=== PATIENT | female | born 1935 | race Caucasian/White ===

== ENCOUNTER 2019-11-01 10:24 | Inpatient (IN) | payer MEDICARE, BC ==
[2019-11-01] MEDS ORDERED: MORPHINE SULFATE 4 MG/ML SYRINGE IVP STA (10:47)
--- NOTE | 2019-11-01 10:59 | ED ---
General Adult HPI - General Chief complaint: Extremity Problem,Nontraumatic Stated complaint: Fall Time Seen by Provider: 11/01/19 10:31 Source: EMS, RN notes reviewed, old records reviewed Mode of arrival: EMS Limitations: no limitations - History of Present Illness Initial comments: Patient is a very pleasant 83-year-old female who presents emergency department today after falling backward trying to wash her dizziness prior to making bread. She reports that she fell back and landed on her right hip. She reports she is unable to ambulate and crawled to the phone to call her sister whom then called EMS. Patient reports she is unable to bear weight or stand and significant pain of the right leg and hip. She was given IV fentanyl by EMS and reports some improvement. Patient denies any chest or abdominal pain. She denies any reported head or neck injury but was placed in a soft c-collar by EMS. Patient is not on blood thinners. - Related Data Allergies Allergy/AdvReac Type Severity Reaction Status Date / Time No Known Allergies Allergy Verified 11/01/19 11:14 Review of Systems ROS Statement: Those systems with pertinent positive or pertinent negative responses have been documented in the HPI. ROS Other: All systems not noted in ROS Statement are negative. Past Medical History Past Medical History: Osteoarthritis (OA) History of Any Multi-Drug Resistant Organisms: None Reported Additional Past Surgical History / Comment(s): eye surgery Past Psychological History: No Psychological Hx Reported Smoking Status: Never smoker Past Alcohol Use History: None Reported Past Drug Use History: None Reported General Exam - General Exam Comments Initial Comments: 83-year-old female. Alert and oriented. No distress. Limitations: no limitations General appearance: alert, in no apparent distress Head exam: Present: atraumatic, normocephalic, normal inspection Eye exam: Present: normal appearance, PERRL, EOMI. Absent: scleral icterus, conjunctival injection, periorbital swelling ENT exam: Present: normal exam, mucous membranes moist Neck exam: Present: normal inspection. Absent: tenderness, meningismus, lymphadenopathy Respiratory exam: Present: normal lung sounds bilaterally. Absent: respiratory distress, wheezes, rales, rhonchi, stridor Cardiovascular Exam: Present: regular rate, normal rhythm, normal heart sounds. Absent: systolic murmur, diastolic murmur, rubs, gallop, clicks GI/Abdominal exam: Present: soft, normal bowel sounds. Absent: distended, tenderness, guarding, rebound, rigid Extremities exam: Present: normal inspection, full ROM, normal capillary refill. Absent: tenderness, pedal edema, joint swelling, calf tenderness Right Hip exam: Present: normal inspection, tenderness. Absent: full ROM Upper Leg exam: Present: normal inspection, full ROM, tenderness (upper thigh, greatear trochanter), swelling Knee exam: Present: normal inspection, full ROM Lower Leg exam: Present: normal inspection, full ROM Ankle exam: Present: normal inspection, full ROM Foot/Toe exam: Present: normal inspection, full ROM Gait: observed and normal Back exam: Present: normal inspection Neurological exam: Present: alert, oriented X3, CN II-XII intact Psychiatric exam: Present: normal affect, normal mood Skin exam: Present: warm, dry, intact, normal color. Absent: rash Course Vital Signs 11/01/19 10:25 Temperature 97 F L Pulse Rate 81 Respiratory 18 Rate Blood Pressure 169/74 O2 Sat by Pulse 96 Oximetry EKG Findings - EKG Comments: EKG Findings:: EKG shows normal sinus rhythm, nonspecific T wave abnormality. Abnormal EKG. Ventricular rate of 77 bpm. SD interval is 162 ms. QRS duration is 66 ms. QTC 392/443 ms. Medical Decision Making - Medical Decision Making Patient's an 83-year-old female who presents emergency department today after fall from standing position landing on her right hip. X-rays reveal evidence of a right intertrochanteric nondisplaced fracture. She had a CT brain and C-spine which were negative for acute process. She is alert and oriented. She has no other complaints of pain at this time. Patient was given IV pain medication. Discussed the case with JOSIAS Robert to admit for Dr. Holbrook with consult to medicine. Plan for surgery possibly Sunday or Sunday. Pt will be given calle. - Lab Data Result diagrams: 11/01/19 11:00 11/01/19 11:00 Lab Results 11/01/19 11/01/19 11/01/19 Range/Units 11:00 11:00 11:00 WBC 9.3 (3.8-10.6) k/uL RBC 3.50 L (3.80-5.40) m/uL Hgb 11.2 L (11.4-16.0) gm/dL Hct 33.5 L (34.0-46.0) % MCV 95.6 (80.0-100.0) fL MCH 32.0 (25.0-35.0) pg MCHC 33.4 (31.0-37.0) g/dL RDW 13.5 (11.5-15.5) % Plt Count 163 (150-450) k/uL Neutrophils % 85 % Lymphocytes % 10 % Monocytes % 3 % Eosinophils % 0 % Basophils % 0 % Neutrophils # 7.9 H (1.3-7.7) k/uL Lymphocytes # 1.0 (1.0-4.8) k/uL Monocytes # 0.3 (0-1.0) k/uL Eosinophils # 0.0 (0-0.7) k/uL Basophils # 0.0 (0-0.2) k/uL PT 10.4 (9.0-12.0) sec INR 1.0 (<1.2) APTT 22.1 (22.0-30.0) sec Sodium 138 (137-145) mmol/L Potassium 4.7 (3.5-5.1) mmol/L Chloride 105 (98-107) mmol/L Carbon Dioxide 27 (22-30) mmol/L Anion Gap 6 mmol/L BUN 20 H (7-17) mg/dL Creatinine 0.95 (0.52-1.04) mg/dL Est GFR (CKD-EPI)AfAm 65 (>60 ml/min/1.73 sqM) Est GFR (CKD-EPI)NonAf 57 (>60 ml/min/1.73 sqM) Glucose 184 H (74-99) mg/dL Calcium 8.8 (8.4-10.2) mg/dL Total Bilirubin 0.5 (0.2-1.3) mg/dL AST 33 (14-36) U/L ALT 19 (4-34) U/L Alkaline Phosphatase 52 (38-126) U/L Troponin I (0.000-0.034) ng/mL Total Protein 6.3 (6.3-8.2) g/dL Albumin 4.1 (3.5-5.0) g/dL 11/01/19 Range/Units 11:00 WBC (3.8-10.6) k/uL RBC (3.80-5.40) m/uL Hgb (11.4-16.0) gm/dL Hct (34.0-46.0) % MCV (80.0-100.0) fL MCH (25.0-35.0) pg MCHC (31.0-37.0) g/dL RDW (11.5-15.5) % Plt Count (150-450) k/uL Neutrophils % % Lymphocytes % % Monocytes % % Eosinophils % % Basophils % % Neutrophils # (1.3-7.7) k/uL Lymphocytes # (1.0-4.8) k/uL Monocytes # (0-1.0) k/uL Eosinophils # (0-0.7) k/uL Basophils # (0-0.2) k/uL PT (9.0-12.0) sec INR (<1.2) APTT (22.0-30.0) sec Sodium (137-145) mmol/L Potassium (3.5-5.1) mmol/L Chloride (98-107) mmol/L Carbon Dioxide (22-30) mmol/L Anion Gap mmol/L BUN (7-17) mg/dL Creatinine (0.52-1.04) mg/dL Est GFR (CKD-EPI)AfAm (>60 ml/min/1.73 sqM) Est GFR (CKD-EPI)NonAf (>60 ml/min/1.73 sqM) Glucose (74-99) mg/dL Calcium (8.4-10.2) mg/dL Total Bilirubin (0.2-1.3) mg/dL AST (14-36) U/L ALT (4-34) U/L Alkaline Phosphatase (38-126) U/L Troponin I <0.012 (0.000-0.034) ng/mL Total Protein (6.3-8.2) g/dL Albumin (3.5-5.0) g/dL - Radiology Data Radiology results: report reviewed Wrist x-ray shows chronic changes without acute pulmonary process. Pelvis and right femur fracture shows acute nondisplaced intertrochanteric fracture of the right proximal femur. CT brain and C spine: There is no acute fracture dislocation evident cervical spine. Multilevel spondylolisthesis and degenerative changes. No acute intracranial hemorrhage or midline shift is seen. Mild to moderate diffuse cervical atrophy is noted. Disposition Clinical Impression: Fall, Fracture, intertrochanteric, right femur Disposition: ADMITTED IP TO THIS HOSP Condition: Stable Is patient prescribed a controlled substance at d/c from ED?: No Referrals: Harish Garnica MD [STAFF PHYSICIAN] - 1-2 days Time of Disposition: 12:30
[2019-11-01] MEDS: SODIUM CHLORIDE 0.9% 1,000 ML IV SCH ×2 (11:14→14:03)
[2019-11-01 11:19] LABS: Basophils % (A) 0 %; Eosinophils % (A) 0 %; HCT 33.5 % (34.0-46.0); HGB 11.2 gm/dL (11.4-16.0); Lymphocytes % (A) 10 %; MCHC 33.4 g/dL (31.0-37.0); MCV 95.6 fL (80.0-100.0); Mean Platelet Volume 6.8; Monocytes # (A) 0.3 k/uL (0-1.0); Monocytes % (A) 3 %; Neutrophils # (A) 7.9 k/uL (1.3-7.7); Neutrophils % (A) 85 %; Platelet Count 163 k/uL (150-450); RDW 13.5 % (11.5-15.5); WBC 9.3 k/uL (3.8-10.6)
[2019-11-01 11:27] LABS: Albumin 4.1 g/dL (3.5-5.0); Calcium 8.8 mg/dL (8.4-10.2); Potassium 4.7 mmol/L (3.5-5.1); Total Bilirubin 0.5 mg/dL (0.2-1.3); Total Protein 6.3 g/dL (6.3-8.2)
[2019-11-01 11:32] LABS: Partial Thromboplastin Time 22.1 sec (22.0-30.0); Prothrombin Time 10.4 sec (9.0-12.0)
--- NOTE | 2019-11-01 11:48 | CT ---
EXAMINATION TYPE: CT brain efrain arndt DATE OF EXAM: 11/01/2019 COMPARISON: NONE HISTORY: Lost balance, Fall injury with headache and neck pain. CT DLP: 1170 mGycm. Automated Exposure Control for Dose Reduction was Utilized. TECHNIQUE: CT scan of the head and cervical spine are performed without contrast. FINDINGS: There is no acute intracranial hemorrhage or midline shift identified. Diffuse ventricula r and sulcal prominence. Bilateral basal ganglia calcifications. The calvarium is intact. The globes are intact and the visualized sinuses are clear. Cervical spine is visualized in its entirety from C1 through upper thoracic levels and demonstrates d extroconvex scoliosis centered in the upper to mid thoracic spine without evidence of acute fracture or dislocation. There is grade 1 retrolisthesis C3 on C4, C4-C5, C5 on C6. Prevertebral soft tissue appears within normal limits. The C1-C2 articulation is within normal limits on the coronal images. Vertebral body heights are maintained. Moderate to severe disc space narrowing and mild to moderate s purring C3-C4 through C6-C7 levels is present. Posterior spurring is present as complexes efface the anterior thecal sac at these levels on sagittal and axial images. Axial images show multilevel uncovertebral facet degenerative changes contributing to mild to moderat e multilevel neural foraminal narrowing at these levels. Thyroid gland is normal in size. Lung apices show moderate pleural/parenchymal scarring bilaterally along with 5 mm posterior calcified nodule or granuloma right upper lobe image 71. No pneumothorax is noted. IMPRESSION: 1. There is no acute fracture or dislocation evident in the cervical spine. Multilevel spondylolisthe sis and degenerative changes as detailed above. 2. No acute intracranial hemorrhage or midline shift is seen. [id number] diffuse cerebral atrop hy noted.
--- NOTE | 2019-11-01 12:03 | XR ---
EXAMINATION TYPE: XR pelvis AP view, XR femur RT DATE OF EXAM: 11/01/2019 CLINICAL HISTORY: Pelvic and right femur pain after fall injury. TECHNIQUE: A single AP view of the pelvis is obtained. Two views of the right femur are obtained. COMPARISON: None. FINDINGS: Osseous structures are demineralized. Persistent linear lucency consistent with acute nondi splaced intertrochanteric fracture right proximal femur seen best on frontal projection. No hip joint dislocation. Mild to moderate symmetric axial joint space loss both hips. Sacroiliac joints felt wit hin normal limits. Pubic symphysis intact. Right-sided pelvic phlebolith. Prominence of fecal materia l in the colonic loops in the right and lower pelvis. No additional acute fracture or dislocation distally. [id number] tricompartment joint space los s right knee. Overlying soft tissue unremarkable. IMPRESSION: There is acute nondisplaced intertrochanteric fracture right proximal femur. (Initial encounter closed type posttraumatic fracture)
--- NOTE | 2019-11-01 12:05 | XR ---
EXAMINATION TYPE: XR chest 1V DATE OF EXAM: 11/01/2019 COMPARISON: Chest x-ray November 23, 2008. HISTORY: Pain after fall injury. TECHNIQUE: Single frontal supine view of the chest is obtained. FINDINGS: There is chronic parenchymal changes bilaterally without suspicious new focal air space op acity, pleural effusion, or pneumothorax seen. The cardiac silhouette size is upper limits of normal currently with atherosclerotic thoracic aorta. The osseous structures demineralized. Underlying sc oliotic curvature is present. IMPRESSION: Chronic changes without acute pulmonary process.
[2019-11-01] MEDS ORDERED: NALOXONE 0.4 MG/ML 1 ML VIAL IV PRN (12:30)
[2019-11-01] MEDS ORDERED: IBUPROFEN 400 MG TAB PO PRN (12:30)
[2019-11-01] MEDS ORDERED: KETOROLAC 15 MG/ML 1 ML VIAL IVP PRN (12:30)
[2019-11-01] MEDS ORDERED: ACETAMINOPHEN TAB 325 MG TAB PO PRN (12:30)
[2019-11-01] MEDS ORDERED: ONDANSETRON 4 MG/2 ML VIAL IVP PRN (12:30)
--- NOTE | 2019-11-01 13:32 | P.HPOR ---
History of Present Illness H&P Date: 11/01/19 Chief Complaint: Right intertrochanteric femur fracture Patient is an 83-year-old female who was brought to [facility] today for evaluation after falling and injuring her right hip. Upon x-ray evaluation, it was demonstrated she had a minimally displaced right intertrochanteric femur fracture. I was contacted by the emergency room staff, the case was discussed. I then was able to evaluate the patient myself in the emergency room today, she had her sister present. She is resting comfortably. She notes most of the pain in the right lower extremity with movement. She denies any left lower extremity pain, upper extremity pain bilaterally, new onset cervical, thoracic or lumbar pain. She denies any previous surgery involving the right lower extremity. Currently she has no headaches, lightheadedness, chest pain, shortness of breath, abdominal discomfort, fever or chills, lower extremity or upper extremity paresthesias. Patient does live alone, she ambulates with no assistive devices. She does still drive. Review of Systems Constitutional: Reports as per HPI Past Medical History Past Medical History: Osteoarthritis (OA) History of Any Multi-Drug Resistant Organisms: None Reported Additional Past Surgical History / Comment(s): eye surgery Past Psychological History: No Psychological Hx Reported Smoking Status: Never smoker Past Alcohol Use History: None Reported Past Drug Use History: None Reported Medications and Allergies Home Medications Medication Instructions Recorded Confirmed Type Acetaminophen [Tylenol] 500 mg PO DAILY@0800,1200 11/01/19 11/01/19 History Cholecalciferol [Vitamin D3 (25 1,000 unit PO HS 11/01/19 11/01/19 History Mcg = 1000 Iu)] Ferrous Sulfate [Feosol] 325 mg PO BID@0800,2000 11/01/19 11/01/19 History HYDROcodone/APAP 5-325MG [[place] 1 tab PO HS 11/01/19 11/01/19 History 5-325] Losartan/Hydrochlorothiazide 1 tab PO DAILY 11/01/19 11/01/19 History [Hyzaar 50-12.5 Tablet] Lovastatin [Mevacor] 20 mg PO DAILY 11/01/19 11/01/19 History Allergies Allergy/AdvReac Type Severity Reaction Status Date / Time No Known Allergies Allergy Verified 11/01/19 12:53 Physical Examination Right lower extremity: No obvious open lesions or sores present, minimal soft tissue swelling present in the right thigh area. There is no erythema present Log roll maneuver reproduces obvious pain, she is unable to straight leg raise no pain around the knee, foot or ankle with palpation, plantar flexion, dorsiflexion, EHL, FHL are intact Calf is soft, no tenderness with palpation, dorsalis pedis pulses 2+ Logroll maneuver of the left lower extremity reproduces no pain, she is able to extend and flex the knee, along with foot and ankle with no discomfort No generalized tenderness with palpation of the bilateral upper extremities Results - Labs Labs: Abnormal Lab Results - Last 24 Hours (Table) 11/01/19 11/01/19 Range/Units 11:00 11:00 RBC 3.50 L (3.80-5.40) m/uL Hgb 11.2 L (11.4-16.0) gm/dL Hct 33.5 L (34.0-46.0) % Neutrophils # 7.9 H (1.3-7.7) k/uL BUN 20 H (7-17) mg/dL Glucose 184 H (74-99) mg/dL H & H 11/01/19 Range/Units 11:00 Hgb 11.2 L (11.4-16.0) gm/dL Hct 33.5 L (34.0-46.0) % Coagulation 11/01/19 Range/Units 11:00 INR 1.0 (<1.2) Result Diagrams: 11/01/19 11:00 11/01/19 11:00 - Diagnostic results Hip x-ray: report reviewed, image reviewed (Images demonstrate a minimally displaced right intertrochanteric femur fracture) Assessment and Plan Assessment: Minimally displaced right intertrochanteric femur fracture Status post fall from standing Plan: I was able to discuss the case, including with physical exam findings and imaging studies might any Dr. Holbrook. We would like to proceed with surgical intervention, more specifically an intramedullary nail of the right femur on 0 11/02/2019. Risk and benefits of the procedure were discussed the patient and sister at bedside, this to include but not exclude infection, blood loss, developmen of blood clots, and adequate healing of bone, need for subsequent surgery, mortality. They are in good understanding with like to proceed Obtain consent Pain control, IV and oral medication as needed Nothing by mouth after midnight Medical recommendations GI and DVT prophylaxis, likely will begin subcu medication after surgery Further recommendations to follow Time with Patient: Less than 30
[2019-11-01] MEDS ORDERED: traMADol-ACETAMINOP 37.5-325MG 1 EACH TAB PO PRN (13:41)
[2019-11-01] MEDS ORDERED: oxyCODONE-APAP 5-325MG 1 EACH TAB PO PRN (13:42)
[2019-11-01] MEDS: MORPHINE SULFATE 4 MG/ML SYRINGE IV PRN ×3 (14:02→22:32)
[2019-11-02] MEDS: MORPHINE SULFATE 4 MG/ML SYRINGE IV PRN ×3 (03:15→21:52)
[2019-11-02] MEDS: PANTOPRAZOLE 40 MG/10 ML VIAL IV SCH (07:42)
[2019-11-02] MEDS ORDERED: ceFAZolin 1,000 MG VIAL ONE (08:01)
[2019-11-02] MEDS ORDERED: diphenhydrAMINE 50 MG/ML 1 ML VIAL ONE (08:01)
[2019-11-02] MEDS ORDERED: ONDANSETRON 4 MG/2 ML VIAL ONE (08:01)
[2019-11-02] MEDS ORDERED: DEXTROSE 50% SYRINGE 50 ML IVP ONE (08:01)
[2019-11-02] MEDS ORDERED: KETAMINE 10 MG/ML 20 ML VIAL ONE (08:01)
[2019-11-02] MEDS ORDERED: MIDAZOLAM 2 MG/2 ML VIAL ONE (08:01)
[2019-11-02] MEDS ORDERED: SODIUM CHLORIDE 0.9% 100 ML BAG ONE (08:01)
[2019-11-02] MEDS ORDERED: IV FLUID CONTINUATION 1,000 ML IV ONE (08:06)
[2019-11-02] MEDS ORDERED: SODIUM CHLORIDE 0.9% 100 ML with ceFAZolin 1,000 MG IV ONE ×2 (08:18)
[2019-11-02] MEDS ORDERED: LACTATED RINGERS 1,000 ML IV ONE (08:30)
[2019-11-02] MEDS: FERROUS SULFATE 325 MG TAB PO SCH ×2 (09:18→19:26)
[2019-11-02] MEDS ORDERED: HYDROmorphone 0.5 MG/0.5 ML SYRINGE IVP PRN ×3 (09:29)
[2019-11-02] MEDS ORDERED: HYDROcodone/APAP 5-325MG 1 EACH TAB PO PRN (09:29)
[2019-11-02] MEDS ORDERED: NALOXONE 0.4 MG/ML 1 ML VIAL IV PRN (09:29)
--- NOTE | 2019-11-02 09:29 | P.OP ---
Date of Procedure: 11/02/19 Preoperative Diagnosis: Right hip intertrochanteric fracture Postoperative Diagnosis: Same Procedure(s) Performed: Trochanteric nailing right hip intertrochanteric fracture Implants: [employer]ynthe[employer] TFNA 11 mm/130 [id number] mm cannulated titanium nail with a 85 mm helical screw and a 32 mm distal locking screw Anesthesia: spinal Surgeon: Liam Holbrook Saddle Mechanic #1: Filiberto Majano Estimated Blood Loss (ml): 20 Pathology: none sent Condition: stable Disposition: PACU Indications for Procedure: 83-year-old patient seen with a right hip intertrochanteric fracture. I recommend intertrochanteric nailing. I reviewed the procedure, risks, benefits and recovery with the patient and her family. They were agreeable and consent was obtained. Operative Findings: See description of procedure Description of Procedure: The patient was taken to the operative suite. The patient received preoperative IV antibiotics. The patient underwent a spinal anesthetic by the department of anesthesia. The patient was then transferred to the Ni/fracture table. The right lower extremity was placed in standard longitudinal traction with some adduction and slight internal rotation. The left leg was placed into a well- padded well-leg oliva. C-arm was brought in confirming adequate alignment of the fracture. Right hip was now prepped and draped in the normal sterile orthopedic fashion. I now made an incision measuring approximately 5 cm proximal to the greater trochanter. I dissected down to the IT band. An incision was made through the IT band. The guidewire was introduced through the tip of the greater trochanter. This was confirmed on intraoperative imaging. I now used a opening reamer. I now chose the appropriate trochanteric nail and selected over the guidewire and then slid gently tapped down the femoral canal. I now created a separate incision for insertion of our guidepin into the head neck complex. This was introduced via the our guide and confirmed via intraoperative imaging. We reamed over our guidewires introduced appropriate length and a helical screw. I now locked into position. We now made another incision for distal locking screw and introduced the cannula through the outrigger. A drill hole was made it was depth gauged and appropriate length distal locking screw was inserted with good bicortical fixation noted. The our goal was removed. The entire construct was visualized under AP and lateral intraoperative imaging and noted adequate alignment of both the hardware and the fracture. Spot films obtained document this. The iliotibial band was repaired with #1 Vicryl. The subcu soft tissues repaired with 2-0 Vicryl followed by repair of the skin with skin ashlie. Sterile dressings were applied. The patient was now awakened, transferred to bed and taken recovery stable condition. Didier FERRARA assisted with the procedure.
--- NOTE | 2019-11-02 11:42 | XR ---
Limited right hip HISTORY: Open reduction internal fixation, hip fracture 2 intraoperative C-arm images document the procedure
--- NOTE | 2019-11-02 11:43 | FL ---
Fluoroscopy HISTORY: Hip fracture 40 seconds fluoroscopy time supplied to the referring clinician. 2 intraoperative C-arm images docum ent the procedure. See dictated report from orthopedic surgery.
[2019-11-02 11:47] LABS: Basophils % (A) 0 %; Eosinophils % (A) 0 %; HCT 27.6 % (34.0-46.0); Lymphocytes # (A) 0.8 k/uL (1.0-4.8); Lymphocytes % (A) 10 %; MCH 31.8 pg (25.0-35.0); MCV 96.4 fL (80.0-100.0); Mean Platelet Volume 6.5; Monocytes # (A) 0.3 k/uL (0-1.0); Monocytes % (A) 3 %; Neutrophils # (A) 7.1 k/uL (1.3-7.7); Neutrophils % (A) 86 %; Platelet Count 149 k/uL (150-450); RBC 2.86 m/uL (3.80-5.40); RDW 13.5 % (11.5-15.5); WBC 8.2 k/uL (3.8-10.6)
[2019-11-02 11:50] LABS: HGB 9.1 gm/dL (11.4-16.0)
[2019-11-02 12:03] VITALS: BMI 21.2
--- NOTE | 2019-11-02 12:05 | P.HPIM ---
History of Present Illness H&P Date: 11/02/19 History of present illness This is an 83-year-old patient of Dr. Concha Garnica with past medical history of hypertension and anemia. Yesterday with the patient was doing dishes and fell backwards. Patient states she landed on her right hip and admitted there for approximately 30 minutes. Patient was able to crawl to the phone where she called her sister who then called EMS. Patient was unable to bear any weight to the right leg and hip. She was transferred to the emergency department where she found to have a right hip fracture. Patient was seen by orthopedic surgery who proceeded to preformed trochanteric nailing of the right hip trochanteric fracture. At this time patient is found resting comfortably in bed without any acute distress. Patient states that her pain is well managed. Patient lives alone and her sister has breast cancer as a 6 or. Patient will require subacute rehab upon discharge. Review Of Systems: Constitutional: No fever, no chills, no night sweats. No weight change. No weakness, fatigue or lethargy. No daytime sleepiness. EENT: No headache. No blurred vision or double vision, no loss of vision. No loss of Hearing, no ringing in the ears, no dizziness. No nasal drainage or congestion. No epistaxis. No sore throat. Lungs: No shortness of breath, cough, no sputum production. No wheezing. Cardiovascular: No chest pain, no lower extremity edema. No palpitations. No paroxysmal nocturnal dyspnea. No orthopnea. No lightheadedness or dizziness. No syncopal episodes. Abdominal: no abdominal discomfort. No nausea, vomiting. no diarrhea. No constipation. No bloody or tarry stools. no loss of appetite. Genitourinary: No dysuria, increased frequency, urgency. No urinary retention. Musculoskeletal: No myalgias. No muscle weakness, no gait dysfunction, no frequent falls. No back pain. No neck pain. Integumentary: No wounds, no lesions. No rash or pruritus. No unusual bruising. No change in hair or nails. Neurologic: No aphasia. No facial droop. No change in mentation. No head injury. No headache. No paralysis. No paresthesia. Psychiatric: No depression. No anxiety. No mood swings. Endocrine: No abnormal blood sugars. No weight change. No excessive sweating or thirst. Social history: Denies smoking, EtOH, recreational street drugs. Patient lives alone and has no children. Family history: No children, one sister with breast cancer, mother and father in their 80s for coronary artery disease. Physical examination General Appearance: Alert, cooperative, no distress, appears stated age. Neck HEENT: Supple, no lymphadenopathy, no thyroid enlargement, no carotid bruits. Lungs: Clear to auscultation without crackles or wheezes no rhonchi, no deformity. Chest Wall: Chest wall normal expansion with deep inspiration no tenderness and no deformity was found on exam, no costochondral pain or discomfort. Heart: Regular rate and rhythm, S1, S2 normal, no murmur, rub or gallop. Back: Symmetric, no curvature, ROM normal, no CVA tenderness. Abdomen: Soft, non-tender, no rebound or rigidity, no hepatosplenomegaly. Extremities: Right hip dressing clean dry and intact. Positive pedal pulses. Extremities normal, atraumatic, no cyanosis or edema. Pulses: 2+ and symmetric. Skin: Skin color, texture, tugor normal, no rashes or lesions. Neurologic: Alert oriented x3 cranial nerves II through XII intact, no motor deficit, no abnormal balance or gait Assessment and plan 1. Fall from standing with right hip fracture. trochanteric nailing of the right hip trochanteric fracture procedure performed today. Postop day 0 2. Right hip fracture as noted above. 3. Hypertension Hyzaar one tablet daily 4. Anemia. Feosol to return 5 mg twice a day 5. Hyperlipidemia. Lipitor 10 mg by mouth daily 5. GI prophylaxis Protonix 40 mg IV daily 6. DVT prophylaxis Lovenox 30 mg subcu daily Discharge plan: Consult social work, physical and occupational therapy for subacute rehab. Impression and plan of care have been directed as dictated by the signing physi cian. Racheal Izaugirre nurse practitioner acting as scribe for signing physician. Past Medical History Past Medical History: Osteoarthritis (OA) History of Any Multi-Drug Resistant Organisms: None Reported Additional Past Surgical History / Comment(s): eye surgery-cataract surgery both eyes Past Psychological History: No Psychological Hx Reported Smoking Status: Never smoker Past Alcohol Use History: None Reported Past Drug Use History: None Reported - Past Family History Sister(s) Family Medical History: Cancer Additional Family Medical History / Comment(s): breast cancer Medications and Allergies Home Medications Medication Instructions Recorded Confirmed Type Acetaminophen [Tylenol] 500 mg PO DAILY@0800,1200 11/01/19 11/01/19 History Cholecalciferol [Vitamin D3 (25 1,000 unit PO HS 11/01/19 11/01/19 History Mcg = 1000 Iu)] Ferrous Sulfate [Feosol] 325 mg PO BID@0800,2000 11/01/19 11/01/19 History HYDROcodone/APAP 5-325MG [[place] 1 tab PO HS 11/01/19 11/01/19 History 5-325] Losartan/Hydrochlorothiazide 1 tab PO DAILY 11/01/19 11/01/19 History [Hyzaar 50-12.5 Tablet] Lovastatin [Mevacor] 20 mg PO DAILY 11/01/19 11/01/19 History Allergies Allergy/AdvReac Type Severity Reaction Status Date / Time No Known Allergies Allergy Verified 11/01/19 12:53 Physical Exam Vitals: Vital Signs Temp Pulse Pulse Pulse Resp BP BP 11/02/19 10:24 97.8 F 58 L 18 119/59 11/02/19 10:01 64 18 98/56 11/02/19 09:46 64 16 123/55 11/02/19 09:31 66 18 120/56 11/02/19 09:16 99.9 F H 70 16 114/53 11/02/19 07:00 98.2 F 68 18 113/51 11/02/19 01:00 99.3 F 84 20 112/56 11/02/19 00:00 20 11/01/19 19:00 98.7 F 68 20 119/60 11/01/19 15:00 98.4 F 74 18 160/62 11/01/19 13:27 98.2 F 80 18 125/80 Pulse Ox 11/02/19 10:24 97 11/02/19 10:01 95 11/02/19 09:46 96 11/02/19 09:31 93 L 11/02/19 09:16 97 11/02/19 07:00 95 11/02/19 01:00 93 L 11/02/19 00:00 11/01/19 19:00 95 11/01/19 15:00 97 11/01/19 13:27 96 Intake and Output 11/01/19 11/02/19 11/02/19 22:59 06:59 14:59 Intake Total 200 0 1200 Output Total 500 800 220 Balance -300 -800 980 Intake: IV 1200 Oral 200 0 Output: Urine 500 800 200 Estimated Blood Loss 20 Other: Voiding Method Indwelling Catheter Indwelling Catheter # Bowel Movements 1 Results CBC & Chem 7: 11/02/19 11:11 11/01/19 11:00 Labs: Abnormal Lab Results - Last 24 Hours (Table) 11/02/19 Range/Units 11:11 RBC 2.86 L (3.80-5.40) m/uL Hgb 9.1 L D (11.4-16.0) gm/dL Hct 27.6 L (34.0-46.0) % Plt Count 149 L (150-450) k/uL Lymphocytes # 0.8 L (1.0-4.8) k/uL Thrombosis Risk Factor Assmnt - Choose All That Apply Each Factor Represents 1 point: Medical pt on bed rest Each Risk Factor Represents 3 Points: Age 75 years or older Each Risk Factor Represents 5 Points: Hip, pelvis, or leg fracture (< 1 month) Thrombosis Risk Factor Assessment Total Risk Factor Score: 9 Thrombosis Risk Factor Assessment Level: High Risk
[2019-11-02] MEDS: LOSARTAN-HCTZ 50-12.5 MG 1 EACH TAB PO SCH (12:55)
[2019-11-02] MEDS: ATORVASTATIN 10 MG TAB PO SCH (13:00)
[2019-11-02] MEDS: HYDROcodone/APAP 5-325MG 1 EACH TAB PO PRN (13:00)
[2019-11-02] MEDS: SODIUM CHLORIDE 0.9% 1,000 ML IV SCH ×3 (13:02→18:03)
[2019-11-02 13:23] LABS: Appearance,Urine Cloudy (Clear); Bacteria,Urine Occasional /hpf; Bilirubin,Urine Negative (Negative); Blood,Urine Large (Negative); Color,Urine Light Yellow; Glucose,Urine (UA) Negative (Negative); Hyaline Casts,Urine 1 /lpf (0-2); Ketones,Urine Negative (Negative); Leukocyte Esterase,Urine Large (Negative); Mucus,Urine Rare /hpf; Nitrite,Urine Negative (Negative); Protein,Urine Negative (Negative); RBC,Urine 155 /hpf (0-5); Specific Gravity,Urine 1.013 (1.001-1.035); Squamous Epithelial Cell,Urine <1 /hpf (0-4); Urobilinogen,Urine <2.0 mg/dL (<2.0); WBC,Urine 76 /hpf (0-5)
[2019-11-02] MEDS: CHOLECALCIFEROL 1,000 UNIT TAB PO SCH (20:33)
[2019-11-03] MEDS: SODIUM CHLORIDE 0.9% 1,000 ML IV SCH ×4 (01:55→21:54)
[2019-11-03] MEDS: FERROUS SULFATE 325 MG TAB PO SCH ×2 (08:01→19:23)
[2019-11-03] MEDS: PANTOPRAZOLE 40 MG/10 ML VIAL IV SCH (08:01)
[2019-11-03] MEDS ORDERED: ENOXAPARIN 30 MG/0.3 ML SYRINGE SQ SCH (09:00)
[2019-11-03] MEDS: ATORVASTATIN 10 MG TAB PO SCH (10:11)
[2019-11-03] MEDS: LOSARTAN-HCTZ 50-12.5 MG 1 EACH TAB PO SCH (10:12)
[2019-11-03 10:37] LABS: Basophils % (A) 0 %; Eosinophils % (A) 0 %; HCT 31.3 % (34.0-46.0); HGB 10.2 gm/dL (11.4-16.0); Lymphocytes # (A) 1.2 k/uL (1.0-4.8); Lymphocytes % (A) 13 %; MCH 31.8 pg (25.0-35.0); MCHC 32.7 g/dL (31.0-37.0); MCV 97.1 fL (80.0-100.0); Mean Platelet Volume 6.8; Monocytes # (A) 0.4 k/uL (0-1.0); Monocytes % (A) 5 %; Neutrophils % (A) 82 %; Platelet Count 166 k/uL (150-450); RBC 3.23 m/uL (3.80-5.40); RDW 13.4 % (11.5-15.5); WBC 9.8 k/uL (3.8-10.6)
--- NOTE | 2019-11-03 11:11 | P.PN ---
Subjective Progress Note Date: 11/03/19 History of present illness This is an 83-year-old patient of Dr. Concha Garnica with past medical history of hypertension and anemia. Yesterday with the patient was doing dishes and fell backwards. Patient states she landed on her right hip and admitted there for approximately 30 minutes. Patient was able to crawl to the phone where she called her sister who then called EMS. Patient was unable to bear any weight to the right leg and hip. She was transferred to the emergency department where she found to have a right hip fracture. Patient was seen by orthopedic surgery who proceeded to preformed trochanteric nailing of the right hip trochanteric fracture. At this time patient is found resting comfortably in bed without any acute distress. Patient states that her pain is well managed. Patient lives alone and her sister has breast cancer as a 6 or. Patient will require subacute rehab upon discharge. 11/02: Patient is seen today in follow-up. She still has a Bill catheter in place which is to be removed today. Her pain is currently controlled. Incentive spirometry added. Patient has been afebrile, heart rate 70, blood pressure 156/58, pulse ox 95% on 3 L nasal cannula. Repeat CBC reveals a white count of 9.8, hemoglobin 10.2, platelet count 166. Urinalysis cloudy, blood large, leukoesterase large, RBCs 155, wbc's 76, WBC clumps few squamous cell less than 1. Bacteria occasional. Patient started on ceftriaxone and Ceftin for the residential. Patient is looking at [facility] for subacute rehab. Medication reconciliation will be reviewed and patient is cleared for discharge to rehab today if arrangements can be made. Pain medication and DVT prophylaxis per orthopedics. Review Of Systems: Constitutional: No fever, no chills, no night sweats. No weight change. No weakness, fatigue or lethargy. No daytime sleepiness. EENT: No headache. No blurred vision or double vision, no loss of vision. No loss of Hearing, no ringing in the ears, no dizziness. No nasal drainage or congestion. No epistaxis. No sore throat. Lungs: No shortness of breath, cough, no sputum production. No wheezing. Cardiovascular: No chest pain, no lower extremity edema. No palpitations. No paroxysmal nocturnal dyspnea. No orthopnea. No lightheadedness or dizziness. No syncopal episodes. Abdominal: no abdominal discomfort. No nausea, vomiting. no diarrhea. No constipation. No bloody or tarry stools. no loss of appetite. Genitourinary: No dysuria, increased frequency, urgency. No urinary retention. Musculoskeletal: No myalgias. No muscle weakness, reports gait dysfunction, no frequent falls. No back pain. No neck pain. Integumentary: No wounds, no lesions. No rash or pruritus. No unusual bruising. No change in hair or nails. Neurologic: No aphasia. No facial droop. No change in mentation. No head injury. No headache. No paralysis. No paresthesia. Psychiatric: No depression. No anxiety. No mood swings. Endocrine: No abnormal blood sugars. No weight change. No excessive sweating or thirst. Physical examination General Appearance: Alert, cooperative, no distress, appears stated age. Neck HEENT: Supple, no lymphadenopathy, no thyroid enlargement, no carotid bruits. Lungs: Clear to auscultation without crackles or wheezes no rhonchi, no deformity. Chest Wall: Chest wall normal expansion with deep inspiration no tenderness and no deformity was found on exam, no costochondral pain or discomfort. Heart: Regular rate and rhythm, S1, S2 normal, no murmur, rub or gallop. Back: Symmetric, no curvature, ROM normal, no CVA tenderness. Abdomen: Soft, non-tender, no rebound or rigidity, no hepatosplenomegaly. Extremities: Right hip dressing clean dry and intact. Positive pedal pulses. Extremities normal, atraumatic, no cyanosis or edema. Pulses: 2+ and symmetric. Skin: Skin color, texture, tugor normal, no rashes or lesions. Neurologic: Alert oriented x3 cranial nerves II through XII intact, no motor deficit, no abnormal balance or gait Assessment and plan 1. Fall from standing with right hip fracture. trochanteric nailing of the right hip trochanteric fracture procedure, postoperative day #1. PT OT per orthopedics, discontinue Bill catheter. Pain management per orthopedics. Incentive spirometry added to reduce incidence of atelectasis and hospital- acquired pneumonia. 2. Right hip fracture as noted above. 3. Hypertension Hyzaar one tablet daily 4. Anemia. Feosol to return 5 mg twice a day 5. Hyperlipidemia. Lipitor 10 mg by mouth daily 5. GI prophylaxis Protonix 40 mg IV daily 6. DVT prophylaxis Lovenox 30 mg subcu daily Discharge plan: [facility] for subacute rehab. Impression and plan of care have been directed as dictated by the signing physician. Darling Mejia nurse practitioner acting as scribe for signing physician. Objective - Vital Signs Vital signs: Vital Signs Temp 98.4 F 11/03/19 07:00 Pulse 70 11/03/19 07:00 Resp 16 11/03/19 07:00 BP 156/58 11/03/19 07:00 Pulse Ox 95 11/03/19 07:00 Intake & Output 11/02/19 11/03/19 11/03/19 18:59 06:59 18:59 Intake Total 1600 200 Output Total 520 500 Balance 1080 -300 Weight 47.627 kg Intake: IV 1600 Sodium Chloride 0.9% 1, 400 000 ml @ 50 mls/hr IV . Q20H [facility] Rx#:[id number] Oral 200 Output: Urine 500 500 Uretheral (Bill) 300 500 Estimated Blood Loss 20 Other: Voiding Method Indwelling Catheter Indwelling Catheter - Labs CBC & Chem 7: 11/03/19 09:59 11/01/19 11:00 Labs: Abnormal Lab Results - Last 24 Hours (Table) 11/02/19 11/02/19 Range/Units 11:11 13:00 RBC 2.86 L (3.80-5.40) m/uL Hgb 9.1 L D (11.4-16.0) gm/dL Hct 27.6 L (34.0-46.0) % Plt Count 149 L (150-450) k/uL Lymphocytes # 0.8 L (1.0-4.8) k/uL Urine Appearance Cloudy H (Clear) Urine Blood Large H (Negative) Ur Leukocyte Esterase Large H (Negative) Urine RBC 155 H (0-5) /hpf Urine WBC 76 H (0-5) /hpf Urine WBC Clumps Few H (None) /hpf Urine Bacteria Occasional H (None) /hpf Urine Mucus Rare H (None) /hpf Microbiology - Last 24 Hours (Table) 11/02/19 13:00 Urine Culture - Preliminary Urine,Voided
--- NOTE | 2019-11-03 15:46 | P.PN ---
Subjective Progress Note Date: 11/03/19 Principal diagnosis: Status post intramedullary nail right intertrochanteric femur fracture patient eventuated at bedside today, she is resting comfortably. She was able to get to the chair today with assistance. She notes improvement in the pain involving her right lower extremity. She denies any chest pain shortness of breath. Objective - Vital Signs Vital signs: Vital Signs Temp 98.2 F 11/03/19 14:06 Pulse 85 11/03/19 14:06 Resp 18 11/03/19 14:06 BP 160/75 11/03/19 14:06 Pulse Ox 100 11/03/19 14:06 Intake & Output 11/02/19 11/03/19 11/03/19 18:59 06:59 18:59 Intake Total 1600 200 Output Total 984 253 8188 Balance 1080 -300 -1650 Weight 47.627 kg Intake: IV 1600 Sodium Chloride 0.9% 1, 400 000 ml @ 50 mls/hr IV . Q20H [facility] Rx#:[id number] Oral 200 Output: Urine 783 946 9366 Uretheral (Bill) 050 284 1013 Estimated Blood Loss 20 Other: Voiding Method Indwelling Catheter Indwelling Catheter Indwelling Catheter # Voids 1 - Exam Right lower extremity: Incisions are clean, dry and intact. Minimal soft tissue swelling present. Sensory exam to light touch throughout the extremity is intact. Plantar flexion, dorsiflexion, EHL, FHL are intact. Dorsalis pedis pulses 2+. - Labs CBC & Chem 7: 11/03/19 09:59 11/01/19 11:00 Labs: Abnormal Lab Results - Last 24 Hours (Table) 11/03/19 Range/Units 09:59 RBC 3.23 L (3.80-5.40) m/uL Hgb 10.2 L (11.4-16.0) gm/dL Hct 31.3 L (34.0-46.0) % Neutrophils # 8.0 H (1.3-7.7) k/uL Microbiology - Last 24 Hours (Table) 11/02/19 13:00 Urine Culture - Preliminary Urine,Voided Assessment and Plan Assessment: Status post intramedullary nail right intertrochanteric femur fracture Plan: Pain control, continue current medication GI and DVT prophylaxis, continue current medication Continue her physical therapy Daily dressing changes Wound care instructions discussed Medical recommendations Hopeful discharge to rehab tomorrow Time with Patient: Less than 30
[2019-11-03] MEDS: CHOLECALCIFEROL 1,000 UNIT TAB PO SCH (20:07)
[2019-11-04] MEDS: SODIUM CHLORIDE 0.9% 1,000 ML IV SCH ×2 (00:15→07:58)
[2019-11-04] MEDS: HYDROcodone/APAP 5-325MG 1 EACH TAB PO PRN ×3 (02:29→16:35)
[2019-11-04 05:58] LABS: Basophils % (A) 0 %; Eosinophils # (A) 0.1 k/uL (0-0.7); Eosinophils % (A) 1 %; HCT 26.7 % (34.0-46.0); Lymphocytes # (A) 1.6 k/uL (1.0-4.8); Lymphocytes % (A) 21 %; MCHC 33.6 g/dL (31.0-37.0); MCV 95.2 fL (80.0-100.0); Mean Platelet Volume 6.8; Monocytes # (A) 0.4 k/uL (0-1.0); Monocytes % (A) 5 %; Neutrophils # (A) 5.3 k/uL (1.3-7.7); Neutrophils % (A) 71 %; Platelet Count 145 k/uL (150-450); RDW 13.2 % (11.5-15.5); WBC 7.4 k/uL (3.8-10.6)
[2019-11-04] MEDS: LOSARTAN-HCTZ 50-12.5 MG 1 EACH TAB PO SCH (07:52)
[2019-11-04] MEDS: FERROUS SULFATE 325 MG TAB PO SCH (07:52)
[2019-11-04] MEDS: ATORVASTATIN 10 MG TAB PO SCH (07:53)
[2019-11-04 08:27] VITALS: TEMP 98.3
[2019-11-04] MEDS ORDERED: ENOXAPARIN 40 MG/0.4 ML SYRINGE SQ SCH (09:00)
[2019-11-04] MEDS ORDERED: PANTOPRAZOLE 40 MG TABLET PO SCH (09:00)
--- NOTE | 2019-11-04 10:56 | P.PN ---
Subjective Progress Note Date: 11/04/19 Principal diagnosis: Status post intramedullary nail right intertrochanteric femur fracture patient eventuated at bedside today, she is resting comfortably. She denies any chest pain shortness of breath. Objective - Vital Signs Vital signs: Vital Signs Temp 98.3 F 11/04/19 07:25 Pulse 95 11/04/19 07:25 Resp 17 11/04/19 07:25 BP 147/73 11/04/19 07:25 Pulse Ox 100 11/04/19 07:25 Intake & Output 11/03/19 11/04/19 11/04/19 18:59 06:59 18:59 Intake Total 300 Output Total 1650 Balance -1650 300 Intake: Oral 300 Output: Urine 1650 Uretheral (Bill) 1400 Other: Voiding Method Indwelling Catheter Toilet # Voids 1 1 - Exam Right lower extremity: Incisions are clean, dry and intact. Minimal soft tissue swelling present. Sensory exam to light touch throughout the extremity is intact. Plantar flexion, dorsiflexion, EHL, FHL are intact. Dorsalis pedis pulses 2+. - Labs CBC & Chem 7: 11/04/19 05:45 11/01/19 11:00 Labs: Abnormal Lab Results - Last 24 Hours (Table) 11/04/19 Range/Units 05:45 RBC 2.80 L (3.80-5.40) m/uL Hgb 9.0 L (11.4-16.0) gm/dL Hct 26.7 L (34.0-46.0) % Plt Count 145 L (150-450) k/uL Microbiology - Last 24 Hours (Table) 11/02/19 13:00 Urine Culture - Preliminary Urine,Voided Gram Neg Bacilli Assessment and Plan Assessment: Status post intramedullary nail right intertrochanteric femur fracture Plan: Pain control, continue current medication GI and DVT prophylaxis, continue current medication Continue her physical therapy Daily dressing changes Wound care instructions discussed Medical recommendations Plan for discharge to rehab today Time with Patient: Less than 30
--- NOTE | 2019-11-04 11:01 | P.DS ---
Providers Date of admission: 11/01/19 12:31 Expected date of discharge: 11/04/19 Attending physician: Liam Holbrook Consults: 11/01/19 12:30 Consult Physician Stat Consulting Provider: Harish Gomez Reason/Comments: Hip fx, med mgmt Do you want consulting provider notified?: Yes Primary care physician: [facility] Course: Date of admission: 11/01/2019 Date of discharge: 11/04/2019 Admission diagnosis: Right intertrochanteric femur fracture Discharge diagnosis: Status post intramedullary nail right intertrochanteric femur fracture Attending physician: Dr. Holbrook Surgical procedures: Intramedullary nailing right intertrochanteric femur fracture Brief history: Patient is a 83-year-old female who presented to [facility] on 11/01/2019 after sustaining a fall at her house. Upon arrival to the hospital, images demonstrated a right intertrochanteric femur fracture. Patient was admitted under our Plan for Likely Surgical Intervention. Proper Consults Were Placed for Medical Management. Hospital course: Details of patient's surgery can be found in operative report. Patient tolerated the procedure well and was subsequently transported to orthopedic floor. Patient's orthopeidc and medical care was provided daily. Patient had daily laboratory tests performed for evaluation of overall blood counts. Patient had daily physical therapy to include strengthening range of motion as well as education with walker ambulation. Patient was treated with Lovenox for their postoperative DVT prophylaxis during their inpatient stay. Patient was noted to have a relatively uneventful postoperative course. Patient reported satisfactory pain control with oral pain medications by postoperative day 0. Patient showed satisfactory progress with physical therapy. Patient moved steadily through the program and had no difficulty meeting the goals by postoperative day 2. Given patient's otherwise satisfactory course and having met physical therapy goals, plan is to discharge patient rehab on postoperative day 2. Discharge condition/disposition: Patient will be discharged rehab in stable condition. Discharge medications: Instructions are given on resumption of patient's normal daily medications per primary care recommendation, in addition patient will be prescribed [place] 5 mg/225 mg, Colace 100 mg, aspirin 81 mg Discharge instructions: 1. Wound care and infection precautions, keep incision dry and covered while showering, no lotions, creams, moisturizers. No soaking, tubs, pools, hottubs. Do not scrub over the incision. 2. Weight-bear as tolerated with walker / cane until follow-up. 3. Ice and elevate when necessary. Do not exceed 20 minutes per hour with ice pack. 4. Utilize compression sleeve until seen at first follow up appointment. 5. Visiting nursing care. 6. Home physical therapy . 7. Pain meds and anticoagulants per prescription. 8. Pain medication has potential to cause constipation. Increase oral fluid and fiber intake. Contact primary care provider if you have not had a bowel movement within 48 hours after discharge 9. No anti-inflammatory medication until discussed at first post operative visit, this including Motrin, Aleve, Mobic, Diclofenac. 10. Follow up in office at 2 weeks postop with Didier Majano PA-C 11. Follow up with your primary care doctor 7-10 days after discharge. 12. Contact [facility] with any questions, . Procedures: Intramedullary nail right intertrochanteric femur fracture Patient Condition at Discharge: Stable Plan - Discharge Summary Discharge Rx Participant: No New Discharge Prescriptions: New Cefuroxime [Ceftin] 250 mg PO BID 3 Days #6 tab Aspirin [Adult Low Dose Aspirin EC] 81 mg PO BID #60 tablet. Docusate [Colace] 100 mg PO DAILY #30 capsule Hydrocodone/Acetaminophen [[place] 5-325] 1 each PO Q6HR PRN #28 tab PRN Reason: Pain Continue Ferrous Sulfate [Iron (65 MG Elemental)] 325 mg PO BID@0800,2000 Acetaminophen [Tylenol] 500 mg PO DAILY@0800,1200 Lovastatin [Mevacor] 20 mg PO DAILY Losartan/Hydrochlorothiazide [Hyzaar 50-12.5 Tablet] 1 tab PO DAILY HYDROcodone/APAP 5-325MG [[place] 5-325] 1 tab PO HS Cholecalciferol [Vitamin D3 (25 Mcg = 1000 Iu)] 1,000 unit PO HS Discharge Medication List Acetaminophen [Tylenol] 500 mg PO DAILY@0800,1200 11/01/19 [History] Cholecalciferol [Vitamin D3 (25 Mcg = 1000 Iu)] 1,000 unit PO HS 11/01/19 [History] Ferrous Sulfate [Iron (65 MG Elemental)] 325 mg PO BID@0800,2000 11/01/19 [History] HYDROcodone/APAP 5-325MG [[place] 5-325] 1 tab PO HS 11/01/19 [History] Losartan/Hydrochlorothiazide [Hyzaar 50-12.5 Tablet] 1 tab PO DAILY 11/01/19 [History] Lovastatin [Mevacor] 20 mg PO DAILY 11/01/19 [History] Cefuroxime [Ceftin] 250 mg PO BID 3 Days #6 tab 11/03/19 [Rx] Aspirin [Adult Low Dose Aspirin EC] 81 mg PO BID #60 tablet. 11/04/19 [Rx] Docusate [Colace] 100 mg PO DAILY #30 capsule 11/04/19 [Rx] Hydrocodone/Acetaminophen [[place] 5-325] 1 each PO Q6HR PRN #28 tab 11/04/19 [Rx] Follow up Appointment(s)/Referral(s): Liam Holbrook DO [Doctor of Osteopathic Medicine] - 11/19/19 4:10 pm Don Garnica MD [Primary Care Provider] - 1 Week (after [facility] from [facility]) Activity/Diet/Wound Care/Special Instructions: [facility] [facility] Discharge Instructions: 1. Wound care and infection precautions, keep incision dry and covered while showering, no lotions, creams, moisturizers. No soaking, pools, hot tubs. Do not scrub over incision. 2. Weight-bear as tolerated with walker / cane until follow-up. 3. Ice and elevate when necessary. Do not exceed 20 minutes per hour with ice pack. 4. Utilize compression sleeve until seen at first follow up appointment. 5. Pain meds and anticoagulants per prescription. 6. Pain medication has potential to cause constipation. Increase oral fluid and fiber intake. Contact primary care provider if you have not had a bowel movement within 48 hours after discharge. 7. No anti-inflammatory medication until discussed at first post operative visit, this including Motrin, Aleve, Mobic, Diclofenac. 8. Follow up in office at 2 weeks postop with Didier Majano PA-C 9. Follow up with your primary care doctor 7-10 days after discharge. 10. Contact [facility] with any questions, . Discharge Disposition: TRANSFER TO SNF/ECF
--- NOTE | 2019-11-04 13:58 | P.PN ---
Subjective Progress Note Date: 11/04/19 History of present illness This is an 83-year-old patient of Dr. Concha Garnica with past medical history of hypertension and anemia. Yesterday with the patient was doing dishes and fell backwards. Patient states she landed on her right hip and admitted there for approximately 30 minutes. Patient was able to crawl to the phone where she called her sister who then called EMS. Patient was unable to bear any weight to the right leg and hip. She was transferred to the emergency department where she found to have a right hip fracture. Patient was seen by orthopedic surgery who proceeded to preformed trochanteric nailing of the right hip trochanteric fracture. At this time patient is found resting comfortably in bed without any acute distress. Patient states that her pain is well managed. Patient lives alone and her sister has breast cancer as a 6 or. Patient will require subacute rehab upon discharge. 11/02: Patient is seen today in follow-up. She still has a Bill catheter in place which is to be removed today. Her pain is currently controlled. Incentive spirometry added. Patient has been afebrile, heart rate 70, blood pressure 156/58, pulse ox 95% on 3 L nasal cannula. Repeat CBC reveals a white count of 9.8, hemoglobin 10.2, platelet count 166. Urinalysis cloudy, blood large, leukoesterase large, RBCs 155, wbc's 76, WBC clumps few squamous cell less than 1. Bacteria occasional. Patient started on ceftriaxone and Ceftin for the retirement. Patient is looking at [facility] for subacute rehab. Medication reconciliation will be reviewed and patient is cleared for discharge to rehab today if arrangements can be made. Pain medication and DVT prophylaxis per orthopedics. 11/03:Bill was removed yesterday patient has been able to void without difficulty. She states she is feeling tired but otherwise pain is controlled. She denies having any chest pain or shortness of breath. Patient has been afebrile, heart rate 95, blood pressure 147/73, pulse ox 100% on 2 L nasal cannula. repeat hemoglobin 9 and platelet count 145. Patient is scheduled for discharge to rehab today.no changes to medication reconciliation. Review Of Systems: Constitutional: No fever, no chills, no night sweats. No weight change. No wea kness, fatigue or lethargy. No daytime sleepiness. EENT: No headache. No blurred vision or double vision, no loss of vision. No loss of Hearing, no ringing in the ears, no dizziness. No nasal drainage or congestion. No epistaxis. No sore throat. Lungs: No shortness of breath, cough, no sputum production. No wheezing. Cardiovascular: No chest pain, no lower extremity edema. No palpitations. No paroxysmal nocturnal dyspnea. No orthopnea. No lightheadedness or dizziness. No syncopal episodes. Abdominal: no abdominal discomfort. No nausea, vomiting. no diarrhea. No constipation. No bloody or tarry stools. no loss of appetite. Genitourinary: No dysuria, increased frequency, urgency. No urinary retention. Musculoskeletal: No myalgias. No muscle weakness, reports gait dysfunction, no frequent falls. No back pain. No neck pain. Integumentary: No wounds, no lesions. No rash or pruritus. No unusual bruising. No change in hair or nails. Neurologic: No aphasia. No facial droop. No change in mentation. No head injury. No headache. No paralysis. No paresthesia. Psychiatric: No depression. No anxiety. No mood swings. Endocrine: No abnormal blood sugars. No weight change. No excessive sweating or thirst. Physical examination General Appearance: Alert, cooperative, no distress, appears stated age.patient is resting in bed. Neck HEENT: Supple, no lymphadenopathy, no thyroid enlargement, no carotid bruits. Lungs: Clear to auscultation without crackles or wheezes no rhonchi, no deformity. Chest Wall: Chest wall normal expansion with deep inspiration no tenderness and no deformity was found on exam, no costochondral pain or discomfort. Heart: Regular rate and rhythm, S1, S2 normal, no murmur, rub or gallop. Back: Symmetric, no curvature, ROM normal, no CVA tenderness. Abdomen: Soft, non-tender, no rebound or rigidity, no hepatosplenomegaly. Extremities: Right hip dressing clean dry and intact. Positive pedal pulses. Extremities normal, atraumatic, no cyanosis or edema. Pulses: 2+ and symmetric. Skin: Skin color, texture, tugor normal, no rashes or lesions. Neurologic: Alert oriented x3 cranial nerves II through XII intact, no motor deficit, no abnormal balance or gait Assessment and plan 1. Fall from standing with right hip fracture. trochanteric nailing of the right hip trochanteric fracture procedure, postoperative day #2. PT OT per orthopedics. Pain management per orthopedics. Incentive spirometry to reduce incidence of atelectasis and hospital-acquired pneumonia. 2. Right hip fracture as noted above. 3. Hypertension Hyzaar one tablet daily 4. Anemia. Feosol to return 5 mg twice a day 5. Hyperlipidemia. Lipitor 10 mg by mouth daily 5. GI prophylaxis Protonix 40 mg IV daily 6. DVT prophylaxis Lovenox 30 mg subcu daily Discharge plan: [facility] for subacute rehab. Impression and plan of care have been directed as dictated by the signing physician. Darling Mejia nurse practitioner acting as scribe for signing physician. Objective - Vital Signs Vital signs: Vital Signs Temp 98.3 F 11/04/19 07:25 Pulse 95 11/04/19 07:25 Resp 17 11/04/19 07:25 BP 147/73 11/04/19 07:25 Pulse Ox 100 11/04/19 07:25 Intake & Output 11/03/19 11/04/19 11/04/19 18:59 06:59 18:59 Intake Total 300 Output Total 1650 Balance -1650 300 Intake: Oral 300 Output: Urine 1650 Uretheral (Bill) 1400 Other: Voiding Method Indwelling Catheter Toilet # Voids 1 1 - Labs CBC & Chem 7: 11/04/19 05:45 11/01/19 11:00 Labs: Abnormal Lab Results - Last 24 Hours (Table) 11/03/19 11/04/19 Range/Units 09:59 05:45 RBC 3.23 L 2.80 L (3.80-5.40) m/uL Hgb 10.2 L 9.0 L (11.4-16.0) gm/dL Hct 31.3 L 26.7 L (34.0-46.0) % Plt Count 145 L (150-450) k/uL Neutrophils # 8.0 H (1.3-7.7) k/uL Microbiology - Last 24 Hours (Table) 11/02/19 13:00 Urine Culture - Preliminary Urine,Voided Gram Neg Bacilli
[2019-11-04 15:46] VITALS: BP 157/62; PULSE 73; RESP 16
--- NOTE | 2019-11-05 12:26 | CDI ---
Documentation Clarification Form Date: 11/05/19 From: Radha Porter CCS Phone: If you have a question about this query, please contact Yandy Carolina, Assembler Chassis at [phone] between 8am and 5pm. Admit Date: 11/01/19 Discharge Date:11/04/19 Patient Name: Evi Amor Visit Number: [id number] ATTENTION: The Clinical Documentation Specialists (CDI) and [facility] Coding Staff appreciate your assistance in clarifying documentation. Please respond to the clarification below the line at the bottom and electronically sign. The CDI & [facility] Coding staff will review the response and follow-up if needed. Please note: Queries are made part of the Legal Health Record. If you have any questions, please contact the author of this message via ITS. Dear Dr. Holbrook, Documentation states: Urinalysis cloudy, blood large, leukoesterase large, RBCs 155, wbc's 76, WBC clumps few squamous cell less than 1 History/Risk Factors: HTN, Anemia, Fall, Hip fracture, DJD Clinical indicators: Abnormal urinalysis, E Coli culture Microbiology: Final culture- Escherichia Coli Treatment: Rocephin 1 gm IVPB Q 24HR, Ceftin 250 mg PO BID new home medication Clinical significance of diagnostic testing and treatment CANNOT be assumed or coded without physician documentation of significance if any. Please clarify what abnormal laboratory signifies: Urinary tract infection Disease process, please specify Infectious process, please specify Abnormal Lab Value Unable to determine Other, please specify Unable to determine by myselfconsider opinion from internal medicine [facility]
--- NOTE | 2019-11-05 12:53 | CDI ---
Documentation Clarification Form Date: 11/05/19 From: Radha Porter CCS Phone: If you have a question about this query, please contact Yandy Carolina, Key Holder at [phone] between 8am and 5pm. Admit Date: 11/01/19 Discharge Date:11/04/19 Patient Name: Evi Amor Visit Number: [id number] ATTENTION: The Clinical Documentation Specialists (CDI) and [facility] Coding Staff appreciate your assistance in clarifying documentation. Please respond to the clarification below the line at the bottom and electronically sign. The CDI & [facility] Coding staff will review the response and follow-up if needed. Please note: Queries are made part of the Legal Health Record. If you have any questions, please contact the author of this message via ITS. Dear Dr. Holbrook, Severe malnutrition has been documented in Dietary Consult 11/01. 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 Mild Protein-Calorie Malnutrition Moderate Protein-Calorie Malnutrition Severe Protein-Calorie Malnutrition Malnutrition, unspecified Malnutrition following GI surgery Other condition, please specify Unable to determine Unable to determine myselfconsider opinion from internal medicine [facility]
--- NOTE | 2019-11-07 10:39 | CDI ---
Documentation Clarification Form Date: 11/07/19 From: Radha Porter CCS Phone: If you have a question about this query, please contact Yandy Carolina, Mixing Pan Tender at [phone] between 8am and 5pm. Admit Date: 11/01/19 Discharge Date:11/04/19 Patient Name: Evi Amor Visit Number: [id number] ATTENTION: The Clinical Documentation Specialists (CDI) and [facility] Coding Staff appreciate your assistance in clarifying documentation. Please respond to the clarification below the line at the bottom and electronically sign. The CDI & [facility] Coding staff will review the response and follow-up if needed. Please note: Queries are made part of the Legal Health Record. If you have any questions, please contact the author of this message via ITS. Dear Dr. Gomez, Severe malnutrition has been documented in Dietary Consult 11/01. 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 xx Mild Protein-Calorie Malnutrition Moderate Protein-Calorie Malnutrition Severe Protein-Calorie Malnutrition Malnutrition, unspecified Malnutrition following GI surgery Other condition, please specify Unable to determine MTDD
--- NOTE | 2019-11-07 10:43 | CDI ---
Documentation Clarification Form Date: 11/07/19 From: Radha Porter CCS Phone: If you have a question about this query, please contact Yandy Carolina, Shield Installer at [phone] between 8am and 5pm. Admit Date: 11/01/19 Discharge Date:11/04/19 Patient Name: Evi Amor Visit Number: [id number] ATTENTION: The Clinical Documentation Specialists (CDI) and [facility] Coding Staff appreciate your assistance in clarifying documentation. Please respond to the clarification below the line at the bottom and electronically sign. The CDI & [facility] Coding staff will review the response and follow-up if needed. Please note: Queries are made part of the Legal Health Record. If you have any questions, please contact the author of this message via ITS. Dear Dr. Gomez, Documentation states: Urinalysis cloudy, blood large, leukoesterase large, RBCs 155, wbc's 76, WBC clumps few squamous cell less than 1 History/Risk Factors: HTN, Anemia, Fall, Hip fracture, DJD Clinical indicators: Abnormal urinalysis, E Coli culture Microbiology: Final culture- Escherichia Coli Treatment: Rocephin 1 gm IVPB Q 24HR, Ceftin 250 mg PO BID new home medication Clinical significance of diagnostic testing and treatment CANNOT be assumed or coded without physician documentation of significance if any. Please clarify what abnormal laboratory signifies: xx Urinary tract infection Disease process, please specify Infectious process, please specify Abnormal Lab Value Unable to determine Other, please specify MTDD
== END 2019-11-04 17:19 | DRG 481 ==
LOC: EC 10:24 → 4SSUR 12:31
PROVIDERS: ADMIT Orthopaedic Surgery; ATTEND Orthopaedic Surgery
PROC: 0QS634Z Reposition Right Upper Femur with Internal Fixation Device, Percutaneous Approach (ICD-10-PCS; principal; 2019-11-02 08:00)
DX: S72.144A Nondisplaced intertrochanteric fracture of right femur, initial encounter for closed fracture (principal); N39.0 Urinary tract infection, site not specified; E44.1 Mild protein-calorie malnutrition; M19.90 Unspecified osteoarthritis, unspecified site; I10 Essential (primary) hypertension; D64.9 Anemia, unspecified; E78.5 Hyperlipidemia, unspecified; B96.20 Unspecified Escherichia coli [E. coli] as the cause of diseases classified elsewhere; W18.30XA Fall on same level, unspecified, initial encounter; Z68.21 Body mass index [BMI] 21.0-21.9, adult; Z71.3 Dietary counseling and surveillance; Z79.899 Other long term (current) drug therapy; Z80.3 Family history of malignant neoplasm of breast
CPT/HCPCS: 36415; 70450; 71045; 72125; 72170; 73502; 80053; 81001; 84484; 85025; 85610; 85730; 87077; 87086; 87186; 93005; 96374; 99285

== ENCOUNTER 2021-01-21 11:43 | Emergency (ER) | payer MEDICARE, BC ==
[2021-01-21 11:52] VITALS: TEMP 97.5
[2021-01-21] MEDS ORDERED: SODIUM CHLORIDE 0.9% 500 ML 500 ML IV ONE (12:02)
[2021-01-21] MEDS ORDERED: ACETAMINOPHEN TAB 325 MG TAB PO STA (12:02)
[2021-01-21] MEDS ORDERED: DIPH,PERTUS(ACELL)TETVAC-LF 0.5 ML VIAL IM ONE (12:05)
--- NOTE | 2021-01-21 12:07 | ED ---
General Adult HPI - General Chief complaint: Fall Stated complaint: Multiple Falls Time Seen by Provider: 01/21/21 11:55 Source: patient, EMS, RN notes reviewed, old records reviewed Mode of arrival: EMS Limitations: no limitations - History of Present Illness Initial comments: Well-appearing 85-year-old female, alert and oriented 4, presents to the em ergency room after a fall in the bathroom. Patient states that she felt very hot and then had a syncopal episode. She states that she lives with her sister. She does have an abrasion to her occiput less than 0.5cm. There is no active bleeding. She denies any other pain. -: days(s) (1) Location: head (Frontal and occipital) Radiation: non-radiation Severity scale (1-10): 2 Quality: aching Improves with: none Worsens with: none Treatments Prior to Arrival: none - Related Data Home Medications Medication Instructions Recorded Confirmed Acetaminophen [Tylenol] 1,000 mg PO DAILY 11/01/19 01/21/21 Cholecalciferol [Vitamin D3 (25 25 mcg PO DAILY 11/01/19 01/21/21 Mcg = 1000 Iu)] Losartan/Hydrochlorothiazide 1 tab PO DAILY 11/01/19 01/21/21 [Hyzaar 50-12.5 Tablet] Lovastatin [Mevacor] 20 mg PO DAILY 11/01/19 01/21/21 Ferrous Sulfate 45mg 90 mg PO DAILY 01/21/21 01/21/21 Psyllium Husk [Metamucil] 0.4 gm PO DAILY 01/21/21 01/21/21 Previous Rx's Medication Instructions Recorded Cephalexin [Keflex] 500 mg PO Q12HR 5 Days #10 cap 01/21/21 Allergies Allergy/AdvReac Type Severity Reaction Status Date / Time No Known Allergies Allergy Verified 01/21/21 13:22 Review of Systems ROS Statement: Those systems with pertinent positive or pertinent negative responses have been documented in the HPI. ROS Other: All systems not noted in ROS Statement are negative. Past Medical History Past Medical History: Osteoarthritis (OA) History of Any Multi-Drug Resistant Organisms: None Reported Past Surgical History: Joint Replacement, Orthopedic Surgery Additional Past Surgical History / Comment(s): eye surgery-cataract surgery both eyes Past Psychological History: No Psychological Hx Reported Smoking Status: Never smoker Past Alcohol Use History: None Reported Past Drug Use History: None Reported - Past Family History Sister(s) Family Medical History: Cancer Additional Family Medical History / Comment(s): breast cancer General Exam Limitations: no limitations General appearance: alert, in no apparent distress Head exam: Present: other (Approximately .5cm abrasion to the occiput but no active bleeding) Eye exam: Present: normal appearance, EOMI. Absent: scleral icterus, conjunctival injection, periorbital swelling, periorbital tenderness ENT exam: Present: normal exam, normal oropharynx Neck exam: Present: normal inspection, full ROM. Absent: tenderness, meningismus, lymphadenopathy, thyromegaly Respiratory exam: Present: rales (bases). Absent: respiratory distress, chest wall tenderness, accessory muscle use, decreased breath sounds Cardiovascular Exam: Present: regular rate, normal rhythm, normal heart sounds. Absent: systolic murmur, diastolic murmur, rubs, gallop, clicks GI/Abdominal exam: Present: soft, normal bowel sounds. Absent: distended, tenderness, guarding, rebound, rigid Extremities exam: Present: normal inspection, full ROM, normal capillary refill. Absent: tenderness, pedal edema, joint swelling, calf tenderness Back exam: Present: normal inspection, full ROM, other (Abrasion thoracic spine). Absent: tenderness, CVA tenderness (R), CVA tenderness (L), muscle spasm, paraspinal tenderness, vertebral tenderness Neurological exam: Present: alert, oriented X3 Psychiatric exam: Present: normal affect, normal mood Skin exam: Present: warm, dry, intact, normal color. Absent: rash, cyanosis, diaphoretic Course Vital Signs 01/21/21 01/21/21 11:46 16:04 Temperature 97.5 F L Pulse Rate 80 82 Respiratory 18 16 Rate Blood Pressure 156/93 133/66 O2 Sat by Pulse 99 95 Oximetry EKG Findings - EKG Results: EKG: sinus rhythm (Ventricular rate of 77, ID interval 0.182, QRS 0.64, QTC 0.454) Medical Decision Making - Medical Decision Making Well-appearing 85-year-old female, alert and oriented 4, presents to the emergency room after a fall in the bathroom today. She states that she felt very hot and then fell. She does not take any blood thinners. She states that she lives with her sister. She does have an abrasion to her occiput less than 0.5cm that was cleansed with normal saline and bacitracin applied. There is no active bleeding, no hematoma noted. She does have a small abrasion to her mid back. She denies any other pain. She denies any other medical history other then osteoarthritis. Chest x-ray shows mild atelectasis left base with COPD. There is no acute posttraumatic change. CT brain and C-spine shows no acute fracture or subluxation. There is no evidence of intracranial hemorrhage Hemoglobin and hematocrit are stable. Troponin is negative at 0.012 sinus rhythm on EKG with no ST elevation. Patient's blood glucose is 144. Urinalysis shows positive nitrites, trace ketones, leukocyte esterase and moderate bacteria. She was treated for a UTI with Rocephin in the emergency room and a prescription for Keflex. She was directed to follow up with her primary care doctor on Sunday for reevaluation. - Lab Data Result diagrams: 01/21/21 12:57 01/21/21 12:57 Lab Results 01/21/21 01/21/21 01/21/21 Range/Units 12:57 12:57 12:57 WBC 11.4 H (3.8-10.6) k/uL RBC 3.74 L (3.80-5.40) m/uL Hgb 12.7 (11.4-16.0) gm/dL Hct 37.2 (34.0-46.0) % MCV 99.5 (80.0-100.0) fL MCH 34.0 (25.0-35.0) pg MCHC 34.2 (31.0-37.0) g/dL RDW 13.9 (11.5-15.5) % Plt Count 175 (150-450) k/uL MPV 7.1 Neutrophils % 90 % Lymphocytes % 6 % Monocytes % 3 % Eosinophils % 0 % Basophils % 0 % Neutrophils # 10.2 H (1.3-7.7) k/uL Lymphocytes # 0.7 L (1.0-4.8) k/uL Monocytes # 0.3 (0-1.0) k/uL Eosinophils # 0.0 (0-0.7) k/uL Basophils # 0.0 (0-0.2) k/uL PT 10.0 (9.0-12.0) sec INR 0.9 (<1.2) APTT 22.2 (22.0-30.0) sec Sodium 139 (137-145) mmol/L Potassium 4.5 (3.5-5.1) mmol/L Chloride 104 (98-107) mmol/L Carbon Dioxide 24 (22-30) mmol/L Anion Gap 11 mmol/L BUN 28 H (7-17) mg/dL Creatinine 1.26 H (0.52-1.04) mg/dL Est GFR (CKD-EPI)AfAm 46 (>60 ml/min/1.73 sqM) Est GFR (CKD-EPI)NonAf 39 (>60 ml/min/1.73 sqM) Glucose 144 H (74-99) mg/dL Calcium 9.3 (8.4-10.2) mg/dL Magnesium 1.9 (1.6-2.3) mg/dL Total Bilirubin 0.6 (0.2-1.3) mg/dL AST 42 H (14-36) U/L ALT 23 (4-34) U/L Alkaline Phosphatase 51 (38-126) U/L Troponin I (0.000-0.034) ng/mL Total Protein 7.1 (6.3-8.2) g/dL Albumin 4.6 (3.5-5.0) g/dL Urine Color Urine Appearance (Clear) Urine pH (5.0-8.0) Ur Specific [place] (1.001-1.035) Urine Protein (Negative) Urine Glucose (UA) (Negative) Urine Ketones (Negative) Urine Blood (Negative) Urine Nitrite (Negative) Urine Bilirubin (Negative) Urine Urobilinogen (<2.0) mg/dL Ur Leukocyte Esterase (Negative) Urine RBC (0-5) /hpf Urine WBC (0-5) /hpf Ur Squamous Epith Cells (0-4) /hpf Urine Bacteria (None) /hpf Urine Mucus (None) /hpf 01/21/21 01/21/21 Range/Units 12:57 15:31 WBC (3.8-10.6) k/uL RBC (3.80-5.40) m/uL Hgb (11.4-16.0) gm/dL Hct (34.0-46.0) % MCV (80.0-100.0) fL MCH (25.0-35.0) pg MCHC (31.0-37.0) g/dL RDW (11.5-15.5) % Plt Count (150-450) k/uL MPV Neutrophils % % Lymphocytes % % Monocytes % % Eosinophils % % Basophils % % Neutrophils # (1.3-7.7) k/uL Lymphocytes # (1.0-4.8) k/uL Monocytes # (0-1.0) k/uL Eosinophils # (0-0.7) k/uL Basophils # (0-0.2) k/uL PT (9.0-12.0) sec INR (<1.2) APTT (22.0-30.0) sec Sodium (137-145) mmol/L Potassium (3.5-5.1) mmol/L Chloride (98-107) mmol/L Carbon Dioxide (22-30) mmol/L Anion Gap mmol/L BUN (7-17) mg/dL Creatinine (0.52-1.04) mg/dL Est GFR (CKD-EPI)AfAm (>60 ml/min/1.73 sqM) Est GFR (CKD-EPI)NonAf (>60 ml/min/1.73 sqM) Glucose (74-99) mg/dL Calcium (8.4-10.2) mg/dL Magnesium (1.6-2.3) mg/dL Total Bilirubin (0.2-1.3) mg/dL AST (14-36) U/L ALT (4-34) U/L Alkaline Phosphatase (38-126) U/L Troponin I <0.012 (0.000-0.034) ng/mL Total Protein (6.3-8.2) g/dL Albumin (3.5-5.0) g/dL Urine Color Yellow Urine Appearance Clear (Clear) Urine pH 5.5 (5.0-8.0) Ur Specific [place] 1.016 (1.001-1.035) Urine Protein Negative (Negative) Urine Glucose (UA) Negative (Negative) Urine Ketones Trace H (Negative) Urine Blood Negative (Negative) Urine Nitrite Positive H (Negative) Urine Bilirubin Negative (Negative) Urine Urobilinogen <2.0 (<2.0) mg/dL Ur Leukocyte Esterase Small H (Negative) Urine RBC 2 (0-5) /hpf Urine WBC 9 H (0-5) /hpf Ur Squamous Epith Cells <1 (0-4) /hpf Urine Bacteria Moderate H (None) /hpf Urine Mucus Rare H (None) /hpf Disposition Clinical Impression: Fall, UTI (urinary tract infection) Disposition: HOME SELF-CARE Instructions (If sedation given, give patient instructions): Urinary Tract Infection in Women (ED), Fall Prevention for Older Adults (ED) Additional Instructions: Follow-up with your primary care doctor early next week and have your urinalysis and labs were re-evaluated.. Take antibiotics as prescribed. Return to the emergency room with any new or worsening symptoms. Prescriptions: Cephalexin [Keflex] 500 mg PO Q12HR 5 Days #10 cap Is patient prescribed a controlled substance at d/c from ED?: No Referrals: Don Garnica MD [Primary Care Provider] - 1-2 days Time of Disposition: 16:08
--- NOTE | 2021-01-21 12:35 | CT ---
EXAMINATION TYPE: CT brain efrain arndt DATE OF EXAM: 01/21/2021 COMPARISON: 11/01/2019 HISTORY: Fall, head injury back superior aspect CT DLP: 1137.[address] of the brain was performed. The ventricles, basal cisterns and sulci overlying the cerebral convexities demonstrate mild enlargem ent. There is no evidence for intracranial hemorrhage or sulcal effacement. There is decreased attenuatio n about the periventricular white matter and deep white matter of both cerebral hemispheres, compatib le with chronic small vessel ischemia. No mass effects are seen. If symptoms persist consider MRI. Osseous calvarium is intact. IMPRESSION: 1. Age related atrophic and chronic small vessel ischemic change without acute intracranial process seen at this time. CT Cervical Spine: Unenhanced CT of the cervical spine was performed with bone and soft tissue window settings submitted . Coronal and sagittal reconstruction is obtained. There is normal alignment and prevertebral soft tissues. No evidence for acute cervical fracture . Scattered degenerative disc disease and spondylosis. Biapical scarring. IMPRESSION: 1. No evidence for acute fracture or subluxation of the cervical spine.
[2021-01-21] MEDS ORDERED: BACITRACIN OINT 1 EACH PACKET TOPICAL ONE (13:05)
[2021-01-21 13:24] LABS: Basophils % (A) 0 %; Eosinophils % (A) 0 %; HCT 37.2 % (34.0-46.0); HGB 12.7 gm/dL (11.4-16.0); Lymphocytes # (A) 0.7 k/uL (1.0-4.8); Lymphocytes % (A) 6 %; MCHC 34.2 g/dL (31.0-37.0); MCV 99.5 fL (80.0-100.0); Mean Platelet Volume 7.1; Monocytes # (A) 0.3 k/uL (0-1.0); Monocytes % (A) 3 %; Neutrophils # (A) 10.2 k/uL (1.3-7.7); Neutrophils % (A) 90 %; Platelet Count 175 k/uL (150-450); RBC 3.74 m/uL (3.80-5.40); RDW 13.9 % (11.5-15.5); WBC 11.4 k/uL (3.8-10.6)
[2021-01-21 13:47] LABS: INR 0.9 (<1.2); Partial Thromboplastin Time 22.2 sec (22.0-30.0)
[2021-01-21 13:52] LABS: Albumin 4.6 g/dL (3.5-5.0); Calcium 9.3 mg/dL (8.4-10.2); Magnesium 1.9 mg/dL (1.6-2.3); Potassium 4.5 mmol/L (3.5-5.1); Total Bilirubin 0.6 mg/dL (0.2-1.3); Total Protein 7.1 g/dL (6.3-8.2)
--- NOTE | 2021-01-21 14:47 | XR ---
EXAMINATION TYPE: XR chest 2V DATE OF EXAM: 01/21/2021 COMPARISON: 11/01/2019 INDICATION: Fall TECHNIQUE: Frontal and lateral views of the chest are obtained. FINDINGS: The heart size is upper limits of normal. The pulmonary vasculature is normal. There is some linear opacity at the left base may be some atelectasis.. No pneumothorax is evident. No displaced rib fractures are evident. There is increased retrosternal airspace. Correlate for emphy sema. IMPRESSION: 1. Mild atelectasis left base 2. No acute posttraumatic change is evident. 3. COPD
[2021-01-21 15:46] LABS: Appearance,Urine Clear (Clear); Bacteria,Urine Moderate /hpf; Bilirubin,Urine Negative (Negative); Blood,Urine Negative (Negative); Color,Urine Yellow; Glucose,Urine (UA) Negative (Negative); Ketones,Urine Trace (Negative); Leukocyte Esterase,Urine Small (Negative); Mucus,Urine Rare /hpf; Nitrite,Urine Positive (Negative); PH, Urine 5.5 (5.0-8.0); Protein,Urine Negative (Negative); RBC,Urine 2 /hpf (0-5); Specific Gravity,Urine 1.016 (1.001-1.035); Squamous Epithelial Cell,Urine <1 /hpf (0-4); Urobilinogen,Urine <2.0 mg/dL (<2.0); WBC,Urine 9 /hpf (0-5)
[2021-01-21] MEDS ORDERED: cefTRIAXone IN SWFI 1,000 MG/10 ML SYRINGE IVP STA (15:54)
[2021-01-21 16:04] VITALS: BP 133/66; PULSE 82; RESP 16
== END 2021-01-21 16:30 | disposition home or self-care (01) ==
LOC: EC 11:43
DX: S00.81XA Abrasion of other part of head, initial encounter (principal); S20.419A Abrasion of unspecified back wall of thorax, initial encounter; N39.0 Urinary tract infection, site not specified; M19.90 Unspecified osteoarthritis, unspecified site; Z79.899 Other long term (current) drug therapy; W18.39XA Other fall on same level, initial encounter
CPT/HCPCS: 36415; 93005; 80053; 83735; 84484; 85025; 85610; 85730; 81001; 71046; 72125; 70450; 90715; 96374; 96361; 90471; 99285; J0696

== ENCOUNTER 2023-06-08 09:57 | Emergency (ER) | payer MEDICARE, BC ==
--- NOTE | 2023-06-08 10:22 | ED ---
Fall HPI - General Chief Complaint: Fall Stated Complaint: fall Time Seen by Provider: 06/08/23 10:10 Source: patient, family, RN notes reviewed Mode of arrival: wheelchair - History of Present Illness Initial Comments: This is an 87-year-old female since emergency department with a chief complaint of a fall that occurred on Sunday. Patient states that she was outside when she fell, a large aruna of wind caused a car door to close when she fell forward. At time of fall patient denies dizziness, lightheadedness, chest pain, palpitations. Patient is stating that she has bilateral lower extremity leg pain and has a history of reconstructive surgery of the right hip. Patient also fell striking her right side of her head, denies loss, consciousness. Denies use of blood thinners. Fall was witness by family who is at bedside and aided in history. - Related Data Home Medications Medication Instructions Recorded Confirmed Cholecalciferol [Vitamin D3 (25 25 mcg PO DAILY 11/01/19 06/08/23 Mcg = 1000 Iu)] Losartan/Hydrochlorothiazide 1 tab PO DAILY 11/01/19 06/08/23 [Hyzaar 50-12.5 Tablet] Lovastatin [Mevacor] 20 mg PO HS 11/01/19 06/08/23 Ferrous Sulfate 45mg 90 mg PO DAILY 01/21/21 06/08/23 Allergies Allergy/AdvReac Type Severity Reaction Status Date / Time No Known Allergies Allergy Verified 06/08/23 12:14 Review of Systems ROS Statement: Those systems with pertinent positive or pertinent negative responses have been documented in the HPI. ROS Other: All systems not noted in ROS Statement are negative. Past Medical History Past Medical History: Osteoarthritis (OA) History of Any Multi-Drug Resistant Organisms: None Reported Past Surgical History: Joint Replacement, Orthopedic Surgery Additional Past Surgical History / Comment(s): eye surgery-cataract surgery both eyes Past Psychological History: No Psychological Hx Reported Smoking Status: Never smoker Past Alcohol Use History: None Reported Past Drug Use History: None Reported - Past Family History Sister(s) Family Medical History: Cancer Additional Family Medical History / Comment(s): breast cancer General Exam - General Exam Comments Initial Comments: Visual Physical Exam Vital signs reviewed General: Well-appearing, nontoxic, no acute distress. Head: Normocephalic, atraumatic Eyes: PERRLA, EOMI ENT: Airway patent Chest: Nonlabored breathing Skin: No visual rash, normal skin tone Neuro: Alert and oriented 3 Musculoskeletal: No gross abnormalities Limitations: no limitations General appearance: alert, in no apparent distress Head exam: Present: atraumatic, normocephalic, normal inspection, other (right eyebrow ecchymosis and 0.25 cm laceration) Eye exam: Present: normal appearance, PERRL, EOMI. Absent: scleral icterus, conjunctival injection, periorbital swelling ENT exam: Present: normal exam, mucous membranes moist Neck exam: Present: normal inspection. Absent: tenderness, meningismus, lymphadenopathy Respiratory exam: Present: normal lung sounds bilaterally. Absent: respiratory distress, wheezes, rales, rhonchi, stridor Cardiovascular Exam: Present: regular rate, normal rhythm, normal heart sounds. Absent: systolic murmur, diastolic murmur, rubs, gallop, clicks GI/Abdominal exam: Present: soft, normal bowel sounds. Absent: distended, tenderness, guarding, rebound, rigid Extremities exam: Present: tenderness (mild tenderness to palpation over the right knee, no crepitus or dislocation ), normal capillary refill. Absent: full ROM (limited active ROM due to decreased muscle strength, intact passive ROM), pedal edema, joint swelling Back exam: Present: normal inspection Neurological exam: Present: alert, oriented X3, CN II-XII intact Psychiatric exam: Present: normal affect, normal mood Skin exam: Present: warm, dry, intact, normal color. Absent: rash Course Vital Signs 06/08/23 06/08/23 10:14 12:47 Temperature 98.2 F 98.2 F Pulse Rate 95 83 Respiratory 18 18 Rate Blood Pressure 152/78 138/71 O2 Sat by Pulse 98 97 Oximetry Medical Decision Making - Medical Decision Making Was pt. sent in by a medical professional or institution (, PA, [facility] [employer] [facility] [facility], urgent care, hospital, or fdc...) When possible be specific @ -No Did you speak to anyone other than the patient for history (EMS, parent, family, police, friend...)? What history was obtained from this source @ -No Did you review nursing and triage notes (agree or disagree)? Why? @ -I reviewed and agree with nursing and triage notes Were old charts reviewed (outside hosp., previous admission, EMS record, old EKG, old radiological studies, urgent care reports/EKG's, fdc records)? Report findings @ -No old charts were reviewed Differential Diagnosis (chest pain, altered mental status, abdominal pain women, abdominal pain men, vaginal bleeding, weakness, fever, dyspnea, syncope, head ache, dizziness, GI bleed, back pain, seizure, CVA, palpatations, mental health, musculoskeletal)? @ -Fall, contusion, ecchymosis, sprain EKG interpreted by me (3pts min.). @ -None X-rays interpreted by me (1pt min.). @ -X-rays completed of bilateral tibia, fibula, pelvis, bilateral hips and bilateral femurs with no acute fracture or dislocation noted. CT interpreted by me (1pt min.). @ -CT brain without contrast no acute intracranial process noted. 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 min.). @ -None done What testing was considered but not performed or refused? (CT, X-rays, U/S, labs)? Why? @ -None What meds were considered but not given or refused? Why? @ -None Did you discuss the management of the patient with other professionals (professionals i.e. , PA, [facility] [employer] [facility] [employer], lab, RT, psych nurse, social services analyst, solar systems designer, teacher, chief administrative officer, lining caser)? Give summary @ -No Was smoking cessation discussed for >3mins.? @ -No Was critical care preformed (if so, how long)? @ -No Were there social determinants of health that impacted care today? How? (Homelessness, low income, unemployed, alcoholism, drug addiction, transportation, low edu. Level, literacy, decrease access to med. care, nursing home, rehab)? @ -No Was there de-escalation of care discussed even if they declined (Discuss DNR or withdrawal of care, Hospice)? DNR status @ -No What co-morbidities impacted this encounter? (DM, HTN, Smoking, COPD, CAD, Can cer, CVA, ARF, Chemo, Hep., AIDS, mental health diagnosis, sleep apnea, morbid obesity)? @ -None Was patient admitted / discharged? Hospital course, mention meds given and route, prescriptions, significant lab abnormalities, going to OR and other pertinent info. @ -87-year-old female with history of fall. On physical examination patient noted to have mild ecchymosis over the right brow bone with a minor laceration that is not amendable to suturing or repair. Patient noted to have decreased active range of motion of bilateral lower extremities that is equal on both sides. Patient has mild ecchymosis over the right anterior knee. There is no crepitus or dislocation noted. Patient's imaging is unremarkable and her pain is well-controlled as patient declined offer of pain medication. Patient is stable for discharge. Discussed with Dr. Corrales Undiagnosed new problem with uncertain prognosis? @ -No Drug Therapy requiring intensive monitoring for toxicity (Heparin, Nitro, Insulin, Cardizem)? @ -No Were any procedures done? @ -No Diagnosis/symptom? @ -fall, consution, ecchymosis Acute, or Chronic, or Acute on Chronic? @ -acute Uncomplicated (without systemic symptoms) or Complicated (systemic symptoms)? @ -uncomplicated Side effects of treatment? @ -No Exacerbation, Progression, or Severe Exacerbation? @ -No Poses a threat to life or bodily function? How? (Chest pain, [place], [place], pneumonia, PE, COPD, DKA, ARF, appy, cholecystitis, CVA, Diverticulitis, Homicidal, Suicidal, threat to staff... and all critical care pts) @ -No Disposition Clinical Impression: Fall, Ecchymosis of eye Narrative: Please return to the Emergency Department if symptoms worsen or any other concerns. Disposition: HOME SELF-CARE Condition: Good Instructions (If sedation given, give patient instructions): Fall Prevention for Older Adults (ED) Is patient prescribed a controlled substance at d/c from ED?: No Referrals: Harish Garnica MD [STAFF PHYSICIAN] - 1-2 days Time of Disposition: 12:21
[2023-06-08 10:27] VITALS: RESP 18; TEMP 98.2
--- NOTE | 2023-06-08 11:21 | XR ---
EXAMINATION TYPE: XR pelvis AP view, XR Hip Bilateral Complete, XR femur bilateral DATE OF EXAM: 06/08/2023 CLINICAL HISTORY: pain TECHNIQUE: Single view the pelvis is submitted. Bilateral views of the hips and femurs are also submi tted. FINDINGS: No evidence for fracture, dislocation or bony lesion. Intramedullary lawson and screw proxima l right femur. SI joints appear symmetric. IMPRESSION: 1. No acute fracture or dislocation seen. ICD 10 NO FRACTURE, INITIAL EVALUATION
--- NOTE | 2023-06-08 11:22 | XR ---
EXAMINATION TYPE: XR tibia fibula bilateral DATE OF EXAM: 06/08/2023 CLINICAL HISTORY: pain TECHNIQUE: AP and lateral images of the bilateral tibia and fibula are obtained. COMPARISON: None. FINDINGS: There is no acute fracture/dislocation evident. The joint spaces appear within normal griffin its. The overlying soft tissue appears unremarkable. IMPRESSION: There is no acute fracture or dislocation seen. ICD 10 NO FRACTURE, INITIAL EVALUATION
--- NOTE | 2023-06-08 12:04 | CT ---
EXAMINATION TYPE: CT brain wo con DATE OF EXAM: 06/08/2023 COMPARISON: None HISTORY: 87-year-old female pain after Fall, bruising to RT [facility] TECHNIQUE: Examination was done in axial plane without intravenous contrast. Coronal and sagittal r econstructions performed. CT DLP: 1079.4 mGycm Automated exposure control for dose reduction was used. FINDINGS: There is mild ventriculomegaly with Poon ratio calculated at 0.35, increased slightly from 2020. Larry ign bilateral basal ganglionic calcifications. There is no evidence of acute intracranial hemorrhage, acute ischemic changes, mass, mass-effect, or extra-axial fluid collection. There is no effacement of cerebral sulci or basal subarachnoid cister ns. There is no midline shift. Gruber-white matter distinction is preserved. Atherosclerotic calcifications in the carotid siphons and bilateral cerebellar dentate nuclei. Mild mucosal thickening throughout the ethmoid air cells and left sphenoid sinus also along the floor the left maxillary sinus. Mastoid air cells well pneumatized. Orbits and globes are intact. IMPRESSION: 1. 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 Slightly incr eased from 2020. 2. No acute intracranial abnormality seen.
[2023-06-08 13:29] VITALS: BP 138/71; PULSE 83
== END 2023-06-08 12:59 | disposition home or self-care (01) ==
LOC: EC 09:57
DX: S01.111A Laceration without foreign body of right eyelid and periocular area, initial encounter (principal); S80.01XA Contusion of right knee, initial encounter; W19.XXXA Unspecified fall, initial encounter
CPT/HCPCS: 70450; 72170; 73521; 99284